=== PATIENT | male | born 1940 | race Caucasian/White ===

== ENCOUNTER 2018-05-23 13:42 | Emergency (ER) | payer MEDICARE ==
[2018-05-23] MEDS ORDERED: Azithromycin 250 MG TAB ONE (14:57)
[2018-05-23] MEDS ORDERED: Benzonatate 100 MG CAP ONE (14:57)
--- NOTE | 2018-05-23 15:26 | RAD ---
1 VIEW CHEST: Date: 05/23/18 HISTORY: Cough. COMPARISON: None. FINDINGS: Atherosclerosis of aorta. Normal cardiac silhouette. Pulmonary vessels and hilum are normal. Costophr enic angles are clear. No masses or consolidation. No pneumothorax. Left humeral prosthesis is noted. There appears to be chronic change in the right humerus, incompletely evaluated. IMPRESSION: 1. Cardiomegaly. 2. Atherosclerosis. 3. Chronic changes in the right shoulder are suspected. Dedicated shoulder radiograph series may be beneficial. POS: [facility]
== END 2018-05-23 15:10 | disposition home or self-care (01) ==
LOC: BURERS 13:42
DX: J20.9 Acute bronchitis, unspecified (principal)
CPT/HCPCS: 71045; 87081; 87430; 87804

== ENCOUNTER 2020-06-09 09:58 | Emergency (ER) | payer MEDICARE ==
[2020-06-09] MEDS ORDERED: methylPREDNISolone Sod Succ/PF 125 MG/2 ML VIAL ONE (12:53)
== END 2020-06-09 13:12 | disposition home or self-care (01) ==
LOC: BURERS 09:58
DX: J98.01 Acute bronchospasm (principal); Z86.16 Personal history of COVID-19
CPT/HCPCS: 71046; 93005; 94640; 96372; J2930; J7620

== ENCOUNTER 2020-12-22 14:36 | Emergency (ER) | payer MEDICARE ==
[2020-12-22 15:31] LABS: Hemoglobin 12.4 g/dL (14.0-18.0); Mean Corpuscular HGB CONC 33.4 g/dL (32.0-36.0); Mean Corpuscular Hemoglobin 31.8 pg (27.0-31.0); Mean Corpuscular Volume 95.2 fL (78.0-98.0); Mean Platelet Volume 7.3 fL (7.4-10.4); Platelet Count 116 thou/uL (130-400); RBC Distribution Width 13.1 % (11.5-14.5); Red Blood Cell (RBC) Count 3.89 mill/uL (4.70-6.10); White Blood Cell (WBC) Count 4.2 thou/uL (4.8-10.8)
[2020-12-22 15:45] LABS: ALT (SGPT) 10 U/L (8-55); AST (SGOT) 16 U/L (5-34); Albumin 3.3 g/dL (3.4-4.8); Alkaline Phosphatase 111 U/L (40-110); Anion Gap 14 mmol/L (10-20); BUN (Urea Nitrogen) 19 mg/dL (8.4-25.7); Bilirubin, Total 0.7 mg/dL (0.2-1.2); Calc. Creatinine Clearance 0 mL/min (70-130); Calcium 9.6 mg/dL (7.8-10.44); Carbon Dioxide 28 mmol/L (23-31); Chloride 102 mmol/L (98-107); Globulin 2.7 g/dL (2.4-3.5); Glucose 85 mg/dL (83-110); Magnesium 1.6 mg/dL (1.6-2.6); Potassium 4.2 mmol/L (3.5-5.1); Sodium 140 mmol/L (136-145)
[2020-12-22 15:56] LABS: Band 22 % (5-11); Eosinophils 3 % (0-10); Lymphocytes 30 % (21-51); MDiff Complete? YES; Monocytes 11 % (0-10); Neutrophil 31 % (42-75); Platelet Morphology Comment Appears Decreased; Reactive Lymphocytes 3 % (0-10)
== END 2020-12-22 16:44 | disposition home or self-care (01) ==
LOC: BURERS 14:36
DX: A09 Infectious gastroenteritis and colitis, unspecified (principal)
CPT/HCPCS: 80053; 83735; 85025; 99284

== ENCOUNTER 2021-08-30 13:43 | Emergency (ER) | payer MEDICARE ==
[2021-08-30] MEDS ORDERED: Dexamethasone 4 MG TAB ONE (13:59)
[2021-08-30] MEDS ORDERED: Acetaminophen 500 MG TAB ONE (13:59)
== END 2021-08-30 14:15 | disposition home or self-care (01) ==
LOC: BURERS 13:43
DX: J02.9 Acute pharyngitis, unspecified (principal)
CPT/HCPCS: 99283; J8540

== ENCOUNTER 2021-12-28 14:10 | Emergency (ER) | payer MEDICARE | END 2021-12-28 15:28 | disposition home or self-care (01) | LOC: BURERS 14:10 | DX: M25.451 Effusion, right hip (principal); M70.71 Other bursitis of hip, right hip; I10 Essential (primary) hypertension; E78.5 Hyperlipidemia, unspecified ==